=== PATIENT | male | born 1960 | race Caucasian/White ===

== ENCOUNTER 2024-12-20 17:55 | Emergency (ER) | payer BC ==
[2024-12-20 18:05] VITALS: BP 140/84; PULSE 73; RESP 18; TEMP 97.9; BMI 28.3
== END 2024-12-20 19:34 | disposition left against medical advice (07) ==
LOC: JER 17:55
DX: R42 Dizziness and giddiness (principal)
CPT/HCPCS: 93005; 93010; 99283-25